=== PATIENT | female | born 1965 | race Hispanic/Latino ===

== ENCOUNTER 2019-02-01 11:41 | Outpatient (CLI) | payer MEDICARE ==
--- NOTE | 2019-02-01 16:09 | Mammography Report ---
BILATERAL DIGITAL SCREENING MAMMOGRAM with CAD: 02/01/19 11:41:00 CLINICAL: Routine screening. COMPARISON: None available. However, she did indicate that she had had a mammogram at [facility]. FINDINGS: There are bilateral scattered areas of fibroglandular density.No mass, architectural distortion or suspicious calcifications. IMPRESSION: No mammographic evidence of malignancy. BI-RADS CATEGORY: 1 -- Negative RECOMMENDATION: Routine mammographic screening in one year. COMMENT: Patient follow-up letters are generated by our [employer] application.
== END 2019-02-01 11:42 | disposition home or self-care (01) ==
LOC: SPVWC 11:41
PROVIDERS: ATTEND Internal Medicine
DX: Z12.31 Encounter for screening mammogram for malignant neoplasm of breast (principal)
CPT/HCPCS: 77067

== ENCOUNTER 2019-04-02 09:24 | Outpatient (CLI) | payer MEDICARE ==
--- NOTE | 2019-04-03 08:40 | Magnetic Resonance Report ---
MRI LUMBAR SPINE WITHOUT AND WITH CONTRAST: 04/02/19 CLINICAL: Low back pain and radiculopathy. No comparison TECHNIQUE: Sagittal and axial T1 and T2, sagittal STIR and sagittal and axial postcontrast T1 fat sat sequences on a 1.5 Erica magnet. 13.0 cc of Multihance was injected intravenously for the contrast portion of the exam and consent was obtained prior to the administration of the contrast. FINDINGS: Status post L5-S1 anterior fusion. Normal appearance of the hardware with mild to moderate image degradation at L5-S1. Grade I L3-4 spondylolisthesis with no pars defect identified. The rest of the bodies are in normal alignment. The overall marrow signal is normal. Modic I endplate changes at L3-4 and L4-5. Mild disc space narrowing at L3-4, L4-5 and L5-S1. The conus medullaris is normal and terminates at T12-L1. No mass or enhancing lesion. No abnormal enhancement. L1-2: Mild degenerative disc disease with a mild circumferential disc bulge and moderate-sized anterior osteophytes. L2-3: Intact. L3-4: Grade I spondylolisthesis, mild circumferential disc bulge, and moderate sized anterior osteophytes. Mild bilateral facet hypertrophy and mild bilateral neural foraminal narrowing. L4-5: Mild degenerative disc disease with a moderate size central disc bulge, small anterior posterior osteophytes. Bilateral facet hypertrophy contributes to moderately severe bilateral neural foraminal narrowing, greater on the right than the left. L5-S1: Image degradation due to metal artifact. Degeneration of the disc, bilateral facet hypertrophy and moderate bilateral neural foraminal narrowing. IMPRESSION: Multilevel degenerative disc disease and status post L5-S1 anterior fusion. Multilevel neural foraminal narrowing produced by facet hypertrophy and disc bulges, greatest at L4-5 on the right.
== END 2019-04-02 09:25 | disposition home or self-care (01) ==
LOC: SPVIMAG 09:24
PROVIDERS: ATTEND Anesthesiology
DX: M51.26 Other intervertebral disc displacement, lumbar region (principal); M51.36 Other intervertebral disc degeneration, lumbar region; M48.07 Spinal stenosis, lumbosacral region; M12.88 Other specific arthropathies, not elsewhere classified, other specified site; M25.78 Osteophyte, vertebrae
CPT/HCPCS: 72158; A9577